=== PATIENT | male | born 1945 | race Caucasian/White ===

== ENCOUNTER 2017-02-04 01:31 | Inpatient (IN) | payer MEDICARE ==
[~2017-02-04] VITALS: Ht 180.3 cm; Wt 100.0 kg
[2017-02-04] MEDS ORDERED: SODIUM CHLORIDE 0.9% 1,000 ML IV ONE (01:54)
[2017-02-04] MEDS ORDERED: MORPHINE SULFATE 4 MG/ML, 1ML ONE (01:58)
[2017-02-04] MEDS ORDERED: ASPIRIN 81 MG TABLET CHEW ONE (01:59)
[2017-02-04] MEDS ORDERED: NITROGLYCERIN SINGLE TAB 0.4 MG SL ONE (01:59)
[2017-02-04] MEDS ORDERED: ONDANSETRON 2MG/ML, 2ML ONE (01:59)
[2017-02-04] MEDS ORDERED: BACITRACIN ZINC OINT 500U/GM, 0.9 GM ONE (01:59)
[2017-02-04] MEDS ORDERED: ONDANSETRON 2MG/ML, 2ML IVPush ONE (02:00)
[2017-02-04] MEDS ORDERED: SODIUM CHLORIDE FLUSH 10ML SYR IVF ONE (02:00)
[2017-02-04] MEDS ORDERED: ASPIRIN 81 MG TABLET CHEW PO ONE (02:00)
[2017-02-04] MEDS ORDERED: MORPHINE SULFATE 4 MG/ML, 1ML IVPush PRN (02:00)
[2017-02-04] MEDS ORDERED: NITROGLYCERIN SINGLE TAB 0.4 MG SL PRN (02:00)
[2017-02-04 02:21] LABS: HEMOGLOBIN 12.8 g/dL (13.7-18.0)
[2017-02-04] MEDS ORDERED: ATOR10TA9 PO (02:24)
[2017-02-04] MEDS ORDERED: METF10002 PO (02:24)
[2017-02-04 02:35] LABS: BLOOD UREA NITROGEN 17 mg/dL (7-18)
[2017-02-04 02:41] LABS: IS PT STATUS REG ER OR PRE ER? YES
[2017-02-04] MEDS ORDERED: FUROSEMIDE 40 MG/4 ML IV ONE (03:30)
[2017-02-04] MEDS ORDERED: FUROSEMIDE 40 MG/4 ML ONE (03:32)
[2017-02-04 05:53] VITALS: BP 103/68
[2017-02-04 07:00] VITALS: BP 110/75
[2017-02-04] MEDS ORDERED: ONDANSETRON ODT 4 MG PO PRN (07:00)
[2017-02-04] MEDS ORDERED: TRAZODONE 50MG TABLET PO PRN (07:00)
[2017-02-04] MEDS ORDERED: BISACODYL 10 MG SUPP PR PRN (07:00)
[2017-02-04] MEDS ORDERED: ACETAMINOPHEN 325 MG TABLET PO PRN (07:00)
[2017-02-04] MEDS ORDERED: DOCUSATE 100 MG CAPSULE PO PRN (07:00)
[2017-02-04] MEDS ORDERED: POLYETHYLENE GLYCOL 17 GM PACKET PO PRN (07:00)
[2017-02-04] MEDS ORDERED: LABETALOL 5MG/ML, 20ML IV PRN (07:00)
[2017-02-04] MEDS: INSULIN ASPART 100 UNITS/ML, PEN SQ-INSULIN SCH ×4 (07:00→19:59)
[2017-02-04] MEDS ORDERED: FUROSEMIDE 40 MG/4 ML IV SCH (07:30)
[2017-02-04] MEDS ORDERED: REGADENOSON 0.4 MG/5 ML SYRINGE ONE (08:05)
[2017-02-04 08:40] LABS: IS PT STATUS REG ER OR PRE ER? NO
[2017-02-04] MEDS: ATORVASTATIN 80 MG TABLET PO SCH ×2 (10:59→19:58)
[2017-02-04] MEDS: HEPARIN 5,000 UNITS/ML, 1ML SQ SCH ×3 (11:00→23:06)
[2017-02-04] MEDS: ASPIRIN 325 MG TABLET EC PO SCH (11:00)
[2017-02-04 12:40] VITALS: BP 116/74
[2017-02-04 14:57] LABS: IS PT STATUS REG ER OR PRE ER? NO
[2017-02-04] MEDS: FUROSEMIDE 40 MG/4 ML IV SCH (17:25)
[2017-02-04] MEDS: CARVEDILOL 3.125 MG TABLET PO SCH (18:23)
[2017-02-04 18:57] VITALS: BP 100/64
[2017-02-04] MEDS ORDERED: ATORVASTATIN 10 MG TABLET PO SCH (21:00)
[2017-02-04 21:08] VITALS: BP 110/73
[2017-02-04] MEDS: LISINOPRIL 5 MG TABLET PO SCH (21:08)
[2017-02-05 03:11] VITALS: BP 100/62
[2017-02-05 05:27] LABS: HEMOGLOBIN 13.4 g/dL (13.7-18.0)
[2017-02-05 06:00] LABS: BLOOD UREA NITROGEN 19 mg/dL (7-18)
[2017-02-05 06:08] VITALS: BP 100/66
[2017-02-05] MEDS: CARVEDILOL 3.125 MG TABLET PO SCH ×2 (06:10→17:23)
[2017-02-05] MEDS: ASPIRIN 325 MG TABLET EC PO SCH (06:10)
[2017-02-05] MEDS: INSULIN ASPART 100 UNITS/ML, PEN SQ-INSULIN SCH ×4 (07:00→22:06)
[2017-02-05 07:25] VITALS: BP 96/70
[2017-02-05] MEDS: FUROSEMIDE 40 MG/4 ML IV SCH (07:30)
[2017-02-05] MEDS: HEPARIN 5,000 UNITS/ML, 1ML SQ SCH ×2 (09:10→15:32)
[2017-02-05] MEDS: LISINOPRIL 5 MG TABLET PO SCH ×2 (09:11→21:55)
[2017-02-05] MEDS: FUROSEMIDE 20 MG TABLET PO SCH ×2 (09:13→17:23)
[2017-02-05 13:00] VITALS: BP 98/67
[2017-02-05] MEDS ORDERED: MIDAZOLAM 1 MG/ML, 5ML ONE (13:23)
[2017-02-05] MEDS ORDERED: BIVALIRUDIN 250 MG ONE (13:23)
[2017-02-05] MEDS ORDERED: FENTANYL PF 100 MCG/2ML ONE (13:23)
[2017-02-05] MEDS ORDERED: TICAGRELOR 90 MG TABLET ONE (13:23)
[2017-02-05] MEDS ORDERED: VERAPAMIL 2.5 MG/ML, 2ML ONE (13:23)
[2017-02-05] MEDS ORDERED: NITROGLYCERIN 5 MG/ML, 10ML ONE (13:23)
[2017-02-05] MEDS ORDERED: HEPARIN 1,000 UNITS/ML, 10ML ONE (13:24)
[2017-02-05] MEDS ORDERED: LIDOCAINE 2%, 20ML ONE (13:24)
[2017-02-05 19:05] VITALS: BP 100/64
[2017-02-05] MEDS: ATORVASTATIN 80 MG TABLET PO SCH (21:55)
[2017-02-06] MEDS: HEPARIN 5,000 UNITS/ML, 1ML SQ SCH ×3 (00:49→18:36)
[2017-02-06 01:05] VITALS: BP 99/64
[2017-02-06] MEDS: ASPIRIN 325 MG TABLET EC PO SCH (06:37)
[2017-02-06] MEDS: CARVEDILOL 3.125 MG TABLET PO SCH ×2 (06:37→18:36)
[2017-02-06] MEDS: INSULIN ASPART 100 UNITS/ML, PEN SQ-INSULIN SCH ×4 (07:00→20:30)
[2017-02-06 08:30] VITALS: BP 102/69
[2017-02-06] MEDS: FUROSEMIDE 20 MG TABLET PO SCH ×2 (08:57→20:27)
[2017-02-06] MEDS: LISINOPRIL 5 MG TABLET PO SCH ×2 (09:00→20:28)
[2017-02-06] MEDS ORDERED: LISI5TAB7 PO (13:08)
[2017-02-06] MEDS ORDERED: FURO20TA3 PO (13:08)
[2017-02-06] MEDS ORDERED: ATOR80TA75 PO (13:08)
[2017-02-06] MEDS ORDERED: CARV3.1212 PO (13:08)
[2017-02-06] MEDS ORDERED: ASPI-650 PO (13:08)
[2017-02-06 13:40] VITALS: BP 98/72
[2017-02-06] MEDS ORDERED: SPIR25TA PO (17:45)
[2017-02-06] MEDS: SPIRONOLACTONE 25 MG TABLET PO SCH (18:36)
[2017-02-06 19:52] VITALS: BP 95/62
[2017-02-06] MEDS: ATORVASTATIN 80 MG TABLET PO SCH (20:27)
[2017-02-07 01:17] VITALS: BP 99/65
[2017-02-07] MEDS: HEPARIN 5,000 UNITS/ML, 1ML SQ SCH ×2 (03:18→10:38)
[2017-02-07 05:30] LABS: BLOOD UREA NITROGEN 16 mg/dL (7-18)
[2017-02-07] MEDS: CARVEDILOL 3.125 MG TABLET PO SCH (06:09)
[2017-02-07] MEDS: ASPIRIN 325 MG TABLET EC PO SCH (06:09)
[2017-02-07] MEDS: INSULIN ASPART 100 UNITS/ML, PEN SQ-INSULIN SCH ×2 (07:00→10:38)
[2017-02-07 08:09] VITALS: BP 92/57
[2017-02-07] MEDS: FUROSEMIDE 20 MG TABLET PO SCH (08:10)
[2017-02-07] MEDS: SPIRONOLACTONE 25 MG TABLET PO SCH (08:10)
[2017-02-07] MEDS: LISINOPRIL 5 MG TABLET PO SCH (08:11)
== END 2017-02-07 11:01 | disposition home or self-care (01) | DRG 286 ==
LOC: ED 03:02 → EDIP 03:05 → 5SO 05:49
PROVIDERS: ADMIT Internal Medicine; ATTEND Internal Medicine
PROC: 4A023N7 Measurement of Cardiac Sampling and Pressure, Left Heart, Percutaneous Approach (ICD-10-PCS; principal; 2017-02-05)
PROC: B2111ZZ Fluoroscopy of Multiple Coronary Arteries using Low Osmolar Contrast (ICD-10-PCS; 2017-02-05)
PROC: B2151ZZ Fluoroscopy of Left Heart using Low Osmolar Contrast (ICD-10-PCS; 2017-02-05)
DX: I25.10 Atherosclerotic heart disease of native coronary artery without angina pectoris (principal); I50.21 Acute systolic (congestive) heart failure; E87.1 Hypo-osmolality and hyponatremia; I11.0 Hypertensive heart disease with heart failure; I42.9 Cardiomyopathy, unspecified; E11.9 Type 2 diabetes mellitus without complications; I44.7 Left bundle-branch block, unspecified; E78.5 Hyperlipidemia, unspecified; I34.0 Nonrheumatic mitral (valve) insufficiency; Z79.82 Long term (current) use of aspirin; Z79.84 Long term (current) use of oral hypoglycemic drugs; Z79.899 Other long term (current) drug therapy; Z87.891 Personal history of nicotine dependence; Z90.89 Acquired absence of other organs
CPT/HCPCS: 36415; 71010; 78452; 80048; 80061; 82040; 82962; 83036; 83735; 83880; 84439; 84443; 84484; 85025; 85610; 85730; 93005; 93017; 93306; 93458; 96361; 96374; 96375; C1894; J0583; J1644; J1815; J1940; J2250; J2405; J2785; J3010; J3490; A9502; C9898; J7030; Q9967

== ENCOUNTER → 2017-05-16 | Outpatient (CLI) | payer MEDICARE ==
[~2017-05-16] MED LIST: ASPI-650 PO; ATOR10TA9 PO; ATOR80TA75 PO; CARV3.1212 PO; FURO20TA3 PO; LISI5TAB7 PO; METF10002 PO; SPIR25TA PO
== END | disposition home or self-care (01) ==
LOC: CFH 06:55
PROVIDERS: ATTEND Internal Medicine Cardiovascular Disease
DX: I08.3 Combined rheumatic disorders of mitral, aortic and tricuspid valves (principal); I25.9 Chronic ischemic heart disease, unspecified; E11.9 Type 2 diabetes mellitus without complications
CPT/HCPCS: 93306

== ENCOUNTER 2017-06-12 09:30 | Observation (INO) | payer MEDICARE ==
[~2017-06-12] VITALS: Ht 180.3 cm; Wt 107.2 kg
[2017-06-12 09:30] VITALS: BP 120/71
[2017-06-12 10:32] LABS: HEMATOCRIT 40.7 % (39.2-51.8); HEMOGLOBIN 13.9 g/dL (13.7-18.0); WHITE BLOOD COUNT 5.3 x10^3/uL (3.4-10)
[2017-06-12 10:44] LABS: BLOOD UREA NITROGEN 19 mg/dL (7-18)
[2017-06-12 10:48] LABS: ASPARTATE AMINO TRANSFERASE 17 U/L (15-37)
[2017-06-12] MEDS ORDERED: CARV3.122 PO (10:51)
[2017-06-12] MEDS ORDERED: ASPI-650 PO (10:51)
[2017-06-12] MEDS ORDERED: ATOR80TA75 PO (10:51)
[2017-06-12] MEDS ORDERED: SPIR25TA PO (10:51)
[2017-06-12] MEDS ORDERED: FURO20TA3 PO (10:51)
[2017-06-12] MEDS ORDERED: LISI5TAB7 PO (10:51)
[2017-06-12] MEDS ORDERED: METF10002 PO (10:51)
[2017-06-13] MEDS ORDERED: MIDAZOLAM 1 MG/ML, 5ML ONE (07:43)
[2017-06-13] MEDS ORDERED: FENTANYL PF 250 MCG/5ML ONE (07:43)
[2017-06-13] MEDS ORDERED: PROPOFOL 10 MG/ML, 20ML ONE (08:03)
[2017-06-13] MEDS ORDERED: CEFAZOLIN 1,000 MG ONE ×2 (08:03→08:05)
[2017-06-13] MEDS ORDERED: CEFAZOLIN PMX 1GM/50ML 0 ML ONE (08:04)
[2017-06-13] MEDS ORDERED: LIDOCAINE 2%, 20ML ONE (08:05)
[2017-06-13] MEDS ORDERED: OXYcodone 5 MG/5 ML ORAL.SOL UDC PO PRN (10:00)
[2017-06-13] MEDS ORDERED: ONDANSETRON 2MG/ML, 2ML IVPush PRN (10:00)
[2017-06-13] MEDS ORDERED: MIDAZOLAM 1 MG/ML, 2ML IV PRN (10:00)
[2017-06-13] MEDS ORDERED: HYDROcodone/APAP 5/325 TABLET PO PRN (10:00)
[2017-06-13] MEDS ORDERED: FENTANYL PF 100 MCG/2ML IV PRN (10:00)
[2017-06-13] MEDS ORDERED: EPHEDRINE 50 MG/ML, 1ML IVPush PRN (10:00)
[2017-06-13] MEDS ORDERED: HYDROmorphone 1 MG/ML, 1ML IV PRN (10:00)
[2017-06-13] MEDS ORDERED: ACETAMINOPHEN 325 MG TABLET PO PRN (10:00)
[2017-06-13] MEDS ORDERED: ACETAMINOPHEN 650 MG/20.3 ML UDC ONE (10:02)
[2017-06-13] MEDS ORDERED: OXYcodone 5 MG/5 ML ORAL.SOL UDC ONE (10:02)
[2017-06-13 11:35] VITALS: BP 115/76
[2017-06-13] MEDS: SODIUM CHLORIDE 0.9% 1,000 ML IV SCH ×3 (11:59→21:59)
[2017-06-13 14:04] VITALS: BP 102/70
[2017-06-13] MEDS: CEFAZOLIN PMX 1GM/50ML 50 ML IVPB SCH ×2 (16:07→23:56)
[2017-06-13 19:24] VITALS: BP 101/63
[2017-06-13] MEDS ORDERED: ZOLPIDEM 5MG TABLET PO PRN (21:00)
[2017-06-13] MEDS: metFORMIN 500 MG TABLET PO SCH (21:00)
[2017-06-13] MEDS: SPIRONOLACTONE 25 MG TABLET PO SCH (21:00)
[2017-06-13] MEDS: FUROSEMIDE 20 MG TABLET PO SCH (21:00)
[2017-06-13] MEDS: LISINOPRIL 5 MG TABLET PO SCH (21:00)
[2017-06-13] MEDS ORDERED: ATORVASTATIN 80 MG TABLET PO SCH (21:00)
[2017-06-13] MEDS: CARVEDILOL 3.125 MG TABLET PO SCH (21:00)
[2017-06-13] MEDS: SODIUM CHLORIDE FLUSH 10ML SYR IVF SCH (21:10)
[2017-06-14 00:03] VITALS: BP 96/61
[2017-06-14 06:38] VITALS: BP 120/76
[2017-06-14] MEDS ORDERED: ASPIRIN 325 MG TABLET EC PO SCH (09:00)
[2017-06-14] MEDS: SPIRONOLACTONE 25 MG TABLET PO SCH (09:14)
[2017-06-14] MEDS: metFORMIN 500 MG TABLET PO SCH (09:14)
[2017-06-14] MEDS: FUROSEMIDE 20 MG TABLET PO SCH (09:14)
[2017-06-14] MEDS: LISINOPRIL 5 MG TABLET PO SCH (09:14)
[2017-06-14] MEDS: CARVEDILOL 3.125 MG TABLET PO SCH (09:15)
[2017-06-14] MEDS: SODIUM CHLORIDE FLUSH 10ML SYR IVF SCH (09:21)
[2017-06-14] MEDS ORDERED: HYDR-3138 PO (11:25)
[2017-06-14] MEDS: SODIUM CHLORIDE 0.9% 1,000 ML IV SCH (11:26)
== END 2017-06-14 11:59 | disposition home or self-care (01) ==
LOC: INTOOBSV 06-13 06:42 → 5SO 06-13 06:42 → EDSTATUS 06-13 08:00 → 5SO 06-13 11:34
PROVIDERS: ADMIT Internal Medicine Cardiovascular Disease; ATTEND Internal Medicine Cardiovascular Disease
DX: I25.5 Ischemic cardiomyopathy (principal); I50.9 Heart failure, unspecified; I44.7 Left bundle-branch block, unspecified; I25.9 Chronic ischemic heart disease, unspecified; I49.01 Ventricular fibrillation; R94.31 Abnormal electrocardiogram [ECG] [EKG]; F17.210 Nicotine dependence, cigarettes, uncomplicated; E11.9 Type 2 diabetes mellitus without complications; E78.2 Mixed hyperlipidemia; I25.10 Atherosclerotic heart disease of native coronary artery without angina pectoris
CPT/HCPCS: 33225; 33249; 36415; 71010; 71020; 80053; 82962; 85025; 85610; 93005; 93641; 96365; 96366; C1769; C1779; C1882; C1887; C1892; C1895; C1900; G0378; J0690; J2250; J2704; J3010; J3490; Q9967

== ENCOUNTER → 2018-05-16 | Outpatient (CLI) | payer MEDICARE ==
[~2018-05-16] MED LIST changes: +ATOR-2 PO; -ATOR80TA75 PO; +CARV3.122 PO; +HYDR-3237 PO
[2018-05-16 09:26] LABS: ALANINE AMINOTRANSFERASE 31 U/L (12-78); ALBUMIN 3.6 g/dL (3.4-5.0); ANION GAP 8 mmol/L (5-15); CALCIUM 8.8 mg/dL (8.5-10.1); CHLORIDE 104 mmol/L (98-107); CREATININE 0.91 mg/dL (0.7-1.3)
[2018-05-16 09:29] LABS: ALKALINE PHOSPHATASE 87 U/L (45-117); BILIRUBIN,TOTAL 0.5 mg/dL (0.2-1.0); TOTAL PROTEIN 7.5 g/dL (6.4-8.2)
== END | disposition home or self-care (01) ==
LOC: STAR 08:16
PROVIDERS: ATTEND Internal Medicine
DX: Z01.818 Encounter for other preprocedural examination (principal); Z12.11 Encounter for screening for malignant neoplasm of colon; K21.9 Gastro-esophageal reflux disease without esophagitis
CPT/HCPCS: 36415; 80053; 93005

== ENCOUNTER 2018-05-21 10:04 | Day surgery (SDC) | payer MEDICARE ==
[~2018-05-21] VITALS: Ht 180.3 cm; Wt 98.7 kg
[2018-05-21 10:39] VITALS: BP 135/77
[2018-05-21] MEDS ORDERED: LACTATED RINGERS 1,000 ML IV SCH ×2 (11:03→14:19)
[2018-05-21] MEDS ORDERED: PROPOFOL 10 MG/ML, 20ML ONE (12:36)
[2018-05-21] MEDS ORDERED: ACETAMINOPHEN 500 MG TABLET PO ONE (14:30)
[2018-05-21] MEDS ORDERED: OxyconTIN ER 10 MG TAB.ER PO ONE (14:30)
[2018-05-21] MEDS ORDERED: GABAPENTIN 300 MG CAPSULE PO ONE (14:30)
== END 2018-05-21 15:30 ==
LOC: OUT 10:04
PROVIDERS: ATTEND Internal Medicine
DX: Z12.11 Encounter for screening for malignant neoplasm of colon (principal); K29.50 Unspecified chronic gastritis without bleeding; K57.30 Diverticulosis of large intestine without perforation or abscess without bleeding; K21.9 Gastro-esophageal reflux disease without esophagitis; K64.8 Other hemorrhoids; E11.9 Type 2 diabetes mellitus without complications; H90.3 Sensorineural hearing loss, bilateral; E78.2 Mixed hyperlipidemia; E66.9 Obesity, unspecified; I25.10 Atherosclerotic heart disease of native coronary artery without angina pectoris; E78.5 Hyperlipidemia, unspecified; Z87.891 Personal history of nicotine dependence; Z95.810 Presence of automatic (implantable) cardiac defibrillator
CPT/HCPCS: 43239; 45378; 82962; 88305; J2704; J7120

== ENCOUNTER → 2019-04-24 | Outpatient (CLI) | payer MEDICARE | END | disposition home or self-care (01) | LOC: CFH 10:44 | PROVIDERS: ATTEND Internal Medicine Cardiovascular Disease | DX: I08.0 Rheumatic disorders of both mitral and aortic valves (principal); I25.10 Atherosclerotic heart disease of native coronary artery without angina pectoris; E78.2 Mixed hyperlipidemia; E11.9 Type 2 diabetes mellitus without complications; Z87.891 Personal history of nicotine dependence; Z95.0 Presence of cardiac pacemaker | CPT/HCPCS: 93306 ==

== ENCOUNTER → 2020-08-18 | Outpatient (CLI) | payer MEDICARE | END | disposition home or self-care (01) | LOC: CVU 06:46 | PROVIDERS: ATTEND Internal Medicine Cardiovascular Disease | DX: I35.8 Other nonrheumatic aortic valve disorders (principal); I25.9 Chronic ischemic heart disease, unspecified | CPT/HCPCS: 93306; 93356 ==